=== PATIENT | male | born 1935 | race Caucasian/White ===

== ENCOUNTER 2018-04-26 15:58 | Emergency (ER) | payer MEDICARE, BC ==
--- NOTE | 2018-04-26 17:18 | EDM.PDOC ---
ED HPI GENERAL MEDICAL PROBLEM - General Chief Complaint: Abdominal Pain Stated Complaint: WEAKNESS Time Seen by Provider: 04/26/18 16:51 Source of Information: Reports: Patient, Family, RN Notes Reviewed History Limitations: Reports: No Limitations - History of Present Illness INITIAL COMMENTS - FREE TEXT/NARRATIVE: 82-year-old gentleman presents to emergency department today with complaint of lower abdominal weakness, he recently had significant spine surgery done on April 09 this includes spinal fusion T10-S1. He states he was doing well he has been ambulating however today after a bowel movement they moved him off the commode sudden onset of pain predominately in the right lower quadrant then after the pain rated a 10 out of 10 he had limited movement in his legs can no longer ambulate he can still move his toes - Related Data Allergies Allergy/AdvReac Type Severity Reaction Status Date / Time No Known Allergies Allergy Verified 10/12/17 10:36 Home Meds: Home Meds rOPINIRole [Requip] 0.5 mg PO TID 03/31/15 [History] Amantadine [Symmetrel] 1 tab PO DAILY 10/10/17 [History] Carbidopa/Levodopa [Carbidopa-Levodopa 25-100] 1.5 tab PO ASDIRECTED 10/10/17 [ History] Gabapentin [Neurontin] 1 cap PO TID PRN 10/10/17 [History] oxyCODONE HCl/Acetaminophen [Oxycodone-Acetaminophen 5-325] 2 tab PO Q4H [History] Past Medical History Musculoskeletal History: Reports: Back Pain, Chronic Neurological History: Reports: Parkinson's Dermatologic History: Reports: Benign Melanoma - Past Surgical History Musculoskeletal Surgical History: Reports: Shoulder Surgery Other Musculoskeletal Surgeries/Procedures:: april 09 had a 11 vert fused Social & Family History - Tobacco Use Smoking Status *Q: Never Smoker ED ROS GENERAL - Review of Systems Review Of Systems: See Below Constitutional: Reports: No Symptoms Respiratory: Reports: No Symptoms Cardiovascular: Reports: No Symptoms GI/Abdominal: Reports: No Symptoms Musculoskeletal: Reports: Back Pain Neurological: Reports: Difficulty Walking, Weakness ED EXAM, NEURO - Physical Exam Exam: See Below Text/Narrative:: Doing Babinski maneuver I do get up to going toe with faning on the left, no movement is appreciated on the right Exam Limited By: No Limitations General Appearance: Alert, WD/WN, No Apparent Distress Respiratory/Chest: No Respiratory Distress, Lungs Clear, Normal Breath Sounds, No Accessory Muscle Use Cardiovascular: Regular Rate, Rhythm, No Murmur GI/Abdominal: Soft, Non-Tender Neurological: Alert, Difficulty Walking. No: Ataxia, Babinski, Straight Leg Raise (L), Straight Leg Raise (R), Saddle Anesthesia DTR: 0: Patella (R), Patella (L) Extremities: Normal Inspection, Limited Range of Motion Course - Vital Signs Last Recorded V/S: Last Vital Signs Temp 98.4 F 04/26/18 16:48 Pulse 85 04/26/18 18:37 Resp 16 04/26/18 16:48 BP 116/57 L 04/26/18 18:37 Pulse Ox 91 L 04/26/18 18:37 - Orders/Labs/Meds Orders: Active Orders 24 hr Category Date Time Status Lumbar Spine wo Cont [CT] Stat Exams 04/26/18 17:18 Taken HYDROmorphone [Dilaudid] Med 04/26/18 18:58 Once 1 mg IM ONETIME ONE Departure - Departure Time of Disposition: 19:01 Disposition: DC/Tfer to [facility] Condition: Fair Clinical Impression: T10 vertebral fracture Qualifiers: Encounter type: initial encounter Fracture type: closed Fracture morphology: unspecified fracture morphology Qualified Code(s): S22.079A - Unspecified fracture of T9-T10 vertebra, initial encounter for closed fracture - Discharge Information Referrals: Nick Recio MD [Primary Care Provider] - Forms: ED Department Discharge - My Orders Last 24 Hours: My Active Orders 04/26/18 17:18 Lumbar Spine wo Cont [CT] Stat 04/26/18 18:58 HYDROmorphone [Dilaudid] 1 mg IM ONETIME ONE - Assessment/Plan Last 24 Hours: My Active Orders 04/26/18 17:18 Lumbar Spine wo Cont [CT] Stat 04/26/18 18:58 HYDROmorphone [Dilaudid] 1 mg IM ONETIME ONE Plan: Assessment Acuity = acute Site and laterality = T10 vertebral fracture with no spinal cord or neural foraminal stenosis Etiology = probably secondary to severe osteoporosis Manifestations = pain Location of injury = Home Lab values = CT scan describes fracture above Plan Called discussed case with Dr. Bucio orthopedic surgeon at [facility] that the new fracture was probably related to hardware but because there is no cord impingement elected to watchful waiting with pain control he was given 1 mg Dilaudid here and then long term order was changed to scheduled every 2 hours and no longer when necessary. I did offer hospital admission versus long term they elected to try this in the long term This note was dictated using [employer] voice recognition software please call with any questions on syntax or grammar.
[2018-04-26 18:38] VITALS: BP 116/57
[2018-04-26] MEDS ORDERED: HYDROmorphone 1 MG/ML Syringe IM ONE (18:58)
== END 2018-04-26 20:16 ==
LOC: JP.ED 15:58
DX: S22.079A Unspecified fracture of T9-T10 vertebra, initial encounter for closed fracture (principal); Z79.899 Other long term (current) drug therapy; X58.XXXA Exposure to other specified factors, initial encounter
CPT/HCPCS: 72131; 96372; 99285; J1170; 99283

== ENCOUNTER 2018-05-07 10:57 | Emergency (ER) | payer MEDICARE, BC ==
--- NOTE | 2018-05-07 11:30 | EDM.PDOC ---
ED HPI GENERAL MEDICAL PROBLEM - General Chief Complaint: General Stated Complaint: LOSS OF LEG USE Time Seen by Provider: 05/07/18 11:15 Source of Information: Reports: Patient, Family, Old Records, RN History Limitations: Reports: No Limitations - History of Present Illness INITIAL COMMENTS - FREE TEXT/NARRATIVE: 82 yo male currently living at a local [facility], he has a T10 fracture which is followed by a neurosurgeon in [place], [place]. He saw this doctor yesterday. He has a previously ordered CT with contrast of his spine scheduled for 12:30p today. Has had some urinary incontinence over the past few days and for this reason Dr. Alvarado asked that he be brought to the ER now. thinks he got a new pressure ulcer as a result of the long road trip and sitting in wheel chairs yesterday. Has Parkinson's Dz. Onset: Gradual Duration: Day(s): (3), Waxing/Waning Location: Reports: Abdomen Quality: Reports: Other (Back pain only, not new) Severity: Moderate Improves with: Reports: Medication, Rest Worsens with: Reports: Movement Context: Reports: Other (T10 fx) Associated Symptoms: Reports: No Other Symptoms Treatments [employer]: Reports: Other (see below) (Usual cares) Back Pain Score (Numeric/FACES): 2 - Related Data Allergies Allergy/AdvReac Type Severity Reaction Status Date / Time No Known Allergies Allergy Verified 10/12/17 10:36 Home Meds: Home Meds rOPINIRole [Requip] 0.5 mg PO TID 03/31/15 [History] Amantadine [Symmetrel] 1 tab PO DAILY 10/10/17 [History] Carbidopa/Levodopa [Carbidopa-Levodopa 25-100] 2 tab PO 5XDAY 10/10/17 [History] Gabapentin [Neurontin] 1 cap PO TID PRN 10/10/17 [History] oxyCODONE HCl/Acetaminophen [Oxycodone-Acetaminophen 5-325] 3 tab PO Q4H [History] Past Medical History Musculoskeletal History: Reports: Back Pain, Chronic Neurological History: Reports: Parkinson's Dermatologic History: Reports: Benign Melanoma - Past Surgical History Musculoskeletal Surgical History: Reports: Shoulder Surgery Other Musculoskeletal Surgeries/Procedures:: april 09 had a 11 vert fused scoliosis Social & Family History - Tobacco Use Smoking Status *Q: Never Smoker - Caffeine Use Caffeine Use: Reports: None - Recreational Drug Use Recreational Drug Use: No ED ROS GENERAL - Review of Systems Review Of Systems: See Below Constitutional: Reports: No Symptoms HEENT: Reports: No Symptoms Respiratory: Reports: No Symptoms Cardiovascular: Reports: No Symptoms GI/Abdominal: Reports: No Symptoms : Reports: Incontinence Musculoskeletal: Reports: Back Pain (chronic) Skin: Reports: Wound (decubitus, under management by staff at [facility] currently.) Neurological: Reports: Difficulty Walking (not new), Weakness (both legs over several days) Psychiatric: Reports: No Symptoms ED EXAM, GENERAL - Physical Exam Exam: See Below Exam Limited By: No Limitations General Appearance: Alert, WD/WN, No Apparent Distress Eye Exam: Bilateral Eye: Normal Inspection Ears: Normal External Exam, Normal Canal, Hearing Grossly Normal Ear Exam: Bilateral Ear: Auricle Normal, Canal Normal Nose: Normal Inspection, Normal Mucosa, No Blood Throat/Mouth: Normal Inspection, Normal Lips, Normal Oropharynx, Normal Voice, No Airway Compromise Head: Atraumatic, Normocephalic Neck: Normal Inspection, Supple Respiratory/Chest: No Respiratory Distress, Lungs Clear, Normal Breath Sounds, No Accessory Muscle Use Cardiovascular: Regular Rate, Rhythm, No Edema GI/Abdominal: Normal Bowel Sounds, Soft. No: Distended (Male) Exam: Suprapubic Fullness Extremities: Normal Inspection, Normal Range of Motion, Non-Tender, No Pedal Edema Neurological: Alert, Oriented, CN II-XII Intact, Normal Cognition, No Motor/ Sensory Deficits Psychiatric: Normal Affect, Normal Mood Skin Exam: Warm, Dry, Intact, Normal Color, No Rash Lymphatic: No Adenopathy Course - Vital Signs Text/Narrative:: Barfield placed for bladder scan showing over 1000 ml Last Recorded V/S: Last Vital Signs Temp 36.5 C 05/07/18 11:13 Pulse 85 05/07/18 11:13 Resp 14 05/07/18 11:13 BP 127/66 05/07/18 11:13 Pulse Ox 92 L 05/07/18 11:13 - Orders/Labs/Meds Orders: Active Orders 24 hr Category Date Time Status Barfield Catheter Insertion [Insert Urinary Catheter] [OM. Care 05/07/18 11:45 Ordered PC] Q24H Urinary Catheter Assessment [RC] ASDIRECTED Care 05/07/18 11:35 Active Myelography Lumbar [CR] Stat Exams 05/07/18 Ordered UA W/MICROSCOPIC [URIN] Stat Lab 05/07/18 12:03 Ordered Labs: Laboratory Tests 05/07/18 Range/Units 12:03 Urine Color Yellow Urine Appearance Slightly cloudy Urine pH 5.0 (4.5-8.0) Ur Specific [place] 1.020 (1.008-1.030) Urine Protein Negative (NEGATIVE) mg/dL Urine Glucose (UA) Normal (NEGATIVE) mg/dL Urine Ketones Negative (NEGATIVE) mg/dL Urine Occult Blood Negative (NEGATIVE) Urine Nitrite Negative (NEGAITVE) Urine Bilirubin Negative (NEGATIVE) Urine Urobilinogen Normal (NORMAL) mg/dL Ur Leukocyte Esterase Negative (NEGATIVE) Urine RBC 0-5 (0-5) Urine WBC Not seen (0-5) Ur Epithelial Cells Not seen Amorphous Sediment Rare Urine Bacteria Rare Urine Mucus Many Meds: Medications Discontinued Medications Generic Name Dose Route Start Last Admin Trade Name Freq PRN Reason Stop Dose Admin Acetaminophen 650 mg 05/07/18 11:47 05/07/18 12:01 Tylenol PO 05/07/18 11:48 650 mg NOW ONE Administration Hydromorphone HCl 1 mg 05/07/18 14:20 05/07/18 14:32 Dilaudid IVPUSH 05/07/18 14:21 1 mg ONETIME ONE Administration Iohexol 20 ml 05/07/18 13:46 05/07/18 16:00 Omnipaque-240 IVPUSH 05/07/18 13:47 20 ml ONETIME ONE Administration Lidocaine HCl 10 ml 05/07/18 11:33 05/07/18 11:45 Xylocaine 2% Jelly MUCMEM 05/07/18 11:34 10 ml ONETIME ONE Administration Lidocaine HCl Confirm 05/07/18 11:36 05/07/18 11:45 Xylocaine 2% Jelly Administered 05/07/18 11:37 Not Given Dose 10 ml .ROUTE .STK-MED ONE Lidocaine HCl 10 ml 05/07/18 13:47 05/07/18 16:00 Xylocaine 1% INJECT 05/07/18 13:48 10 ml ONETIME ONE Administration Oxycodone HCl 15 mg 05/07/18 12:00 05/07/18 12:15 Oxycodone PO 05/07/18 12:01 15 mg ONETIME OZ Administration Tamsulosin HCl 0.4 mg 05/07/18 11:34 05/07/18 12:01 Flomax PO 05/07/18 11:35 0.4 mg ONETIME ONE Administration - Radiology Interpretation Free Text/Narrative:: CT spine with contrast-T10 fluid collection causing pressure on spine, likely a hematoma. CT Results Date: 05/07/18 CT Results Time: 16:15 Departure - Departure Time of Disposition: 17:30 Disposition: DC/Tfer to Acute Hospital [facility] Condition: Fair Clinical Impression: Spinal subdural hematoma, Progressive neurological deficit T10 vertebral fracture Qualifiers: Encounter type: initial encounter Fracture type: closed Fracture morphology: unspecified fracture morphology Qualified Code(s): S22.079A - Unspecified fracture of T9-T10 vertebra, initial encounter for closed fracture - Discharge Information Referrals: Nick Recio MD [Primary Care Provider] - Forms: ED Department Discharge - My Orders Last 24 Hours: My Active Orders 05/07/18 Myelography Lumbar [CR] Stat 05/07/18 11:35 Urinary Catheter Assessment [RC] ASDIRECTED 05/07/18 11:45 Barfield Catheter Insertion [Insert Urinary Catheter] [OM.PC] Q24H 05/07/18 12:03 UA W/MICROSCOPIC [URIN] Stat - Assessment/Plan Last 24 Hours: My Active Orders 05/07/18 Myelography Lumbar [CR] Stat 05/07/18 11:35 Urinary Catheter Assessment [RC] ASDIRECTED 05/07/18 11:45 Barfield Catheter Insertion [Insert Urinary Catheter] [OM.PC] Q24H 05/07/18 12:03 UA W/MICROSCOPIC [URIN] Stat
[2018-05-07] MEDS ORDERED: Lidocaine 2% Jelly 10 ML Urojet MUCMEM ONE (11:33)
[2018-05-07] MEDS ORDERED: Tamsulosin 0.4 MG Cap.ER PO ONE (11:34)
[2018-05-07] MEDS ORDERED: Lidocaine 2% Jelly 10 ML Urojet ONE (11:36)
[2018-05-07] MEDS ORDERED: Acetaminophen 325 MG Tab PO ONE (11:47)
[2018-05-07] MEDS ORDERED: IOHEXOL IVPUSH ONE (13:46)
[2018-05-07] MEDS ORDERED: Lidocaine 1% 20 ML MDV INJECT ONE (13:47)
[2018-05-07] MEDS ORDERED: HYDROmorphone 1 MG/ML Syringe IVPUSH ONE ×2 (14:20→19:34)
--- NOTE | 2018-05-07 16:31 | CT ---
Thoracic Spine wo Cont CLINICAL HISTORY: Leg weakness, pain, incontinence TECHNIQUE: 3 x 3 mm axial contiguous tomographic sections were taken through the lumbar interspaces a fter intrathecal contrast administration. Additional sagittal and coronal reconstructed images were o btained. Auto dosage reduction and iterative reconstruction techniques employed. FINDINGS: Patient has had extensive thoracolumbar surgery and fixation. With transpedicular screws an d rods. The lumbar vertebral alignment is maintained. There is diffuse degenerative disc disease and spondylosis. Axial images show spondylosis at L1-2 encroaching on the anterior thecal sac and right lateral recess . There is moderate spondylosis at L2-3 with some facet upper tract. This causes mild central canal aroldo nosis. There is moderate concentric disc bulging at L3-4. There has been laminectomy. There is severe centra l canal stenosis and encroachment on the lateral recesses and the neural foramina. There is moderate spondylosis at L4-5 is a scoliotic curvature. There is severe facet disease. Patient has had a jessenia ctomy. There is severe central canal stenosis and encroachment on the left lateral recess and both ne ural foramina. There is concentric disc bulging at L5-S1. There has been laminectomy. 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 The there are severe central canal stenosis and encroachment on the lateral recess es and neural foramina L4-5: Laminectomy. Severe central canal stenosis and encroachment left lateral recess and both neural foramina
--- NOTE | 2018-05-07 16:43 | CT ---
CT thoracic Spine with intrathecal Cont CLINICAL HISTORY: Pain, leg weakness, incontinence TECHNIQUE: 3 x 3 mm axial contiguous tomographic sections were taken through the lumbar interspaces a fter intrathecal contrast administration. Additional sagittal and coronal reconstructed images were o btained. Auto dosage reduction and iterative reconstruction techniques employed. FINDINGS: Patient has a posterior vertical fracture through the T10 vertebral body. There is slight p osterior wall pulsion. This shows mild encroachment on the anterior thecal sac. There is a moderate-s ized circumferential epidural collection significantly narrowing the thecal sac causing virtual compl ete block. This is from the upper portion of the T11 to the upper portion of T10. Spinal cord contour is not seen at this level. There is some limited the contrast above this is despite the repeat Trend [place] positioning and rescanning. The mid to upper cord has normal contour. There is no significan t encroachment on thecal sac above the T10 level. Incidental note of small right pleural effusion IMPRESSION: Vertical fracture through the posterior aspect of T10 in the sagittal plane with some min imal posterior positioning of the posterior wall with mild encroachment on the anterior thecal sac. C onfiguration is not significantly changed since 04/26/2018 Moderate sized epidural fluid collection or hematoma causing significant encroachment on the thecal s ac at the T10 level. The cord contour is not seen at this level. The visualized cord above T10 to the mid thoracic spine is normal.
[2018-05-07] MEDS ORDERED: HYDROmorphone 0.5 MG/0.5 ML Syringe IVPUSH ONE (21:43)
--- NOTE | 2018-05-07 22:13 | CR ---
Myelography Lumbar CLINICAL HISTORY: Leg weakness, incontinence TECHNIQUE: After informed consent was signed, the patient was sterilely draped and prepped in the usu al fashion. Local anesthetic was given and a 22-gauge needle was placed at the L2-3 level into the s javon canal. There was clear colorless CSF return. 10 mL of Isovue-200 M was instilled under fluorosc opic guidance and multiple overhead images were obtained. Patient was placed in Trendelenburg positio n to move the contrast into the thoracic spine region then rotated from prone to supine to prone posi tion on the gurney. The patient tolerated the procedure well without complication and left the x-ray room in unchanged condition. FINDINGS: Successful intrathecal contrast injection for CT myelography. The fluoroscopy images are li mited due to patient's condition and ability to cooperate IMPRESSION: Lumbar puncture and contrast injection for thoracolumbar CT myelogram
[2018-05-07 22:21] VITALS: BP 113/57
== END 2018-05-07 21:50 ==
LOC: JP.ED 10:57
DX: S06.5X9A Traumatic subdural hemorrhage with loss of consciousness of unspecified duration, initial encounter (principal); S22.079A Unspecified fracture of T9-T10 vertebra, initial encounter for closed fracture; R29.818 Other symptoms and signs involving the nervous system; G20 Parkinson's disease; Z79.899 Other long term (current) drug therapy; R32 Unspecified urinary incontinence; X58.XXXA Exposure to other specified factors, initial encounter
CPT/HCPCS: 51702; 51798; 72128; 72131; 72265; 81001; 96374; 96376; 99284; A9270; J1170; Q9965

== ENCOUNTER 2018-06-28 12:20 | Emergency (ER) | payer MEDICARE, BC ==
[2018-06-28] MEDS ORDERED: Lactated Ringers 1,000 ML IV ONE (12:56)
[2018-06-28] MEDS ORDERED: Sodium Chloride 0.9% 10 ML Syringe FLUSH PRN (12:56)
--- NOTE | 2018-06-28 13:01 | EDM.PDOC ---
ED HPI GENERAL MEDICAL PROBLEM - General Chief Complaint: Back Pain or Injury Stated Complaint: EXTREME ABDOMINAL PAIN Time Seen by Provider: 06/28/18 12:42 Source of Information: Reports: Patient, Family, Old Records, RN Notes Reviewed History Limitations: Reports: No Limitations - History of Present Illness INITIAL COMMENTS - FREE TEXT/NARRATIVE: 82-year-old gentleman presents to the emergency department today via EMS services, he has a known history of T10 fracture status post surgical intervention with complications of subdural hematoma all this happened in April of this year complications of his subdural hematoma include loss of function of his legs. He has been using the PAL system for movement in the long term, last night he heard a pop this morning he has been in a significant amount of pain right flank area. There is no incontinence no change in his lower extremity status no fevers shortness breath or chest pain Pelvic Pain Score (Numeric/FACES): 2 - Related Data Allergies Allergy/AdvReac Type Severity Reaction Status Date / Time No Known Allergies Allergy Verified 06/28/18 13:12 Home Meds: Home Meds rOPINIRole [Requip] 0.5 mg PO TID 03/31/15 [History] Amantadine [Symmetrel] 1 tab PO DAILY 10/10/17 [History] Carbidopa/Levodopa [Carbidopa-Levodopa 25-100] 2 tab PO 5XDAY 10/10/17 [History] Gabapentin [Neurontin] 1 cap PO TID PRN 10/10/17 [History] oxyCODONE HCl/Acetaminophen [Oxycodone-Acetaminophen 5-325] 3 tab PO Q4H [History] Past Medical History Musculoskeletal History: Reports: Back Pain, Chronic Neurological History: Reports: Parkinson's Dermatologic History: Reports: Benign Melanoma - Past Surgical History Musculoskeletal Surgical History: Reports: Shoulder Surgery Other Musculoskeletal Surgeries/Procedures:: 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 Denies: Frequency, Urgency Musculoskeletal: Reports: No Symptoms. Denies: Back Pain Skin: Reports: No Symptoms Neurological: Reports: No Symptoms ED EXAM, GI/ABD - Physical Exam Exam: See Below Exam Limited By: No Limitations General Appearance: Alert, WD/WN, No Apparent Distress Respiratory/Chest: No Respiratory Distress, Lungs Clear, Normal Breath Sounds, No Accessory Muscle Use Cardiovascular: Regular Rate, Rhythm, No Murmur GI/Abdominal Exam: Soft, No Organomegaly, No Distention, No Abnormal Bruit, No Mass, Tender (Tenderness the right flank). No: Guarding, Rigid, Rebound Back Exam: Normal Inspection, Decreased Range of Motion. No: CVA Tenderness (R) , CVA Tenderness (L), Muscle Spasm, Paraspinal Tenderness, Vertebral Tenderness Extremities: Normal Inspection, Non-Tender. No: Normal Range of Motion, No Pedal Edema Course - Vital Signs Last Recorded V/S: Last Vital Signs Temp 98.5 F 06/28/18 13:00 Pulse 80 06/28/18 15:54 Resp 18 06/28/18 14:15 BP 105/48 L 06/28/18 15:54 Pulse Ox 92 L 06/28/18 14:15 - Orders/Labs/Meds Orders: Active Orders 24 hr Category Date Time Status Peripheral IV Care [RC] . DIRECTED Care 06/28/18 12:57 Active Chest 1V Frontal [CR] Urgent Exams 06/28/18 12:55 Taken UA W/MICROSCOPIC [URIN] Urgent Lab 06/28/18 16:00 Ordered Iopamidol [Isovue-300 (61%)] Med 06/28/18 14:00 Active 100 ml IV . DIRECTED Sodium Chloride 0.9% [Normal Saline] 71 ml Med 06/28/18 14:00 Active IV ASDIRECTED Sodium Chloride 0.9% [Saline Flush] Med 06/28/18 12:56 Active 10 ml FLUSH ASDIRECTED PRN Peripheral IV Insertion Adult [OM.PC] Urgent Oth 06/28/18 12:56 Ordered Medication Orders Sodium Chloride (Normal Saline) 71 mls @ 3 mls/sec IV ASDIRECTED OZ Iopamidol (Isovue-300 (61%)) 100 ml IV . DIRECTED OZ Sodium Chloride (Saline Flush) 10 ml FLUSH ASDIRECTED PRN PRN Reason: Keep Vein Open Last Admin: 06/28/18 13:48 Dose: 10 ml Labs: Laboratory Tests 06/28/18 06/28/18 06/28/18 Range/Units 13:14 13:14 13:14 WBC 6.7 (4.5-11.0) K/uL RBC 3.49 L (4.30-5.90) M/uL Hgb 9.7 L (12.0-15.0) g/dL Hct 30.8 L (40.0-54.0) % MCV 88 (80-98) fL MCH 28 (27-31) pg MCHC 32 (32-36) % Plt Count 318 (150-400) K/uL Neut % (Auto) 57 (36-66) % Lymph % (Auto) 30 (24-44) % [place] % (Auto) 12 H (2-6) % Eos % (Auto) 1 L (2-4) % Baso % (Auto) 0 (0-1) % Sodium 136 L (140-148) mmol/L Potassium 4.2 (3.6-5.2) mmol/L Chloride 101 (100-108) mmol/L Carbon Dioxide 27 (21-32) mmol/L Anion Gap 12.2 (5.0-14.0) mmol/L BUN 11 (7-18) mg/dL Creatinine 0.7 L (0.8-1.3) mg/dL Est Cr Clr Drug Dosing 82.08 mL/min Estimated GFR (MDRD) > 60 (>60) Glucose 107 H (74-106) mg/dL Lactic Acid 1.0 (0.4-2.0) mmol/L Calcium 8.7 (8.5-10.1) mg/dL Total Bilirubin 0.5 (0.2-1.0) mg/dL AST 12 L (15-37) U/L ALT 6 L (12-78) U/L Alkaline Phosphatase 109 (46-116) U/L Total Protein 6.7 (6.4-8.2) g/dL Albumin 2.3 L (3.4-5.0) g/dL Globulin 4.4 H (2.3-3.5) g/dL Albumin/Globulin Ratio 0.5 L (1.2-2.2) Urine Color Urine Appearance Urine pH (4.5-8.0) Ur Specific [place] (1.008-1.030) Urine Protein (NEGATIVE) mg/dL Urine Glucose (UA) (NEGATIVE) mg/dL Urine Ketones (NEGATIVE) mg/dL Urine Occult Blood (NEGATIVE) Urine Nitrite (NEGAITVE) Urine Bilirubin (NEGATIVE) Urine Urobilinogen (NORMAL) mg/dL Ur Leukocyte Esterase (NEGATIVE) Urine RBC (0-5) Urine WBC (0-5) Ur Epithelial Cells Amorphous Sediment Urine Bacteria Urine Mucus 06/28/18 Range/Units 16:00 WBC (4.5-11.0) K/uL RBC (4.30-5.90) M/uL Hgb (12.0-15.0) g/dL Hct (40.0-54.0) % MCV (80-98) fL MCH (27-31) pg MCHC (32-36) % Plt Count (150-400) K/uL Neut % (Auto) (36-66) % Lymph % (Auto) (24-44) % [place] % (Auto) (2-6) % Eos % (Auto) (2-4) % Baso % (Auto) (0-1) % Sodium (140-148) mmol/L Potassium (3.6-5.2) mmol/L Chloride (100-108) mmol/L Carbon Dioxide (21-32) mmol/L Anion Gap (5.0-14.0) mmol/L BUN (7-18) mg/dL Creatinine (0.8-1.3) mg/dL Est Cr Clr Drug Dosing mL/min Estimated GFR (MDRD) (>60) Glucose (74-106) mg/dL Lactic Acid (0.4-2.0) mmol/L Calcium (8.5-10.1) mg/dL Total Bilirubin (0.2-1.0) mg/dL AST (15-37) U/L ALT (12-78) U/L Alkaline Phosphatase (46-116) U/L Total Protein (6.4-8.2) g/dL Albumin (3.4-5.0) g/dL Globulin (2.3-3.5) g/dL Albumin/Globulin Ratio (1.2-2.2) Urine Color Yellow Urine Appearance Clear Urine pH 7.0 (4.5-8.0) Ur Specific [place] 1.005 L (1.008-1.030) Urine Protein Negative (NEGATIVE) mg/dL Urine Glucose (UA) Normal (NEGATIVE) mg/dL Urine Ketones Negative (NEGATIVE) mg/dL Urine Occult Blood Negative (NEGATIVE) Urine Nitrite Negative (NEGAITVE) Urine Bilirubin Negative (NEGATIVE) Urine Urobilinogen Normal (NORMAL) mg/dL Ur Leukocyte Esterase Negative (NEGATIVE) Urine RBC Not seen (0-5) Urine WBC Not seen (0-5) Ur Epithelial Cells Rare Amorphous Sediment Not seen Urine Bacteria Not seen Urine Mucus Not seen Meds: Medications Generic Name Dose Route Start Last Admin Trade Name Freq PRN Reason Stop Dose Admin Sodium Chloride 71 mls @ 3 mls/sec 06/28/18 14:00 Normal Saline IV ASDIRECTED OZ Iopamidol 100 ml 06/28/18 14:00 Isovue-300 (61%) IV . DIRECTED OZ Sodium Chloride 10 ml 06/28/18 12:56 06/28/18 13:48 Saline Flush FLUSH 10 ml ASDIRECTED PRN Administration Keep Vein Open Discontinued Medications Generic Name Dose Route Start Last Admin Trade Name Freq PRN Reason Stop Dose Admin Hydromorphone HCl 1 mg 06/28/18 17:41 Dilaudid IVPUSH 06/28/18 17:42 ONETIME ONE Lactated Ringer's 1,000 mls @ 500 mls/hr 06/28/18 12:56 06/28/18 13:32 Ringers, Lactated IV 06/28/18 14:55 500 mls/hr BOLUS ONE Administration Sodium Chloride 10 ml 06/28/18 13:46 Saline Flush FLUSH 06/28/18 13:47 ONETIME ONE Departure - Departure Time of Disposition: 17:50 Disposition: DC/Tfer to Acute Hospital 02 Condition: Fair Clinical Impression: Back pain Qualifiers: Back pain location: thoracic back pain Chronicity: unspecified Back pain laterality: unspecified Qualified Code(s): M54.6 - Pain in thoracic spine - Discharge Information Referrals: Nick Recio MD [Primary Care Provider] - Forms: ED Department Discharge - My Orders Last 24 Hours: My Active Orders 06/28/18 12:55 Chest 1V Frontal [CR] Urgent 06/28/18 12:56 Sodium Chloride 0.9% [Saline Flush] 10 ml FLUSH ASDIRECTED PRN Peripheral IV Insertion Adult [OM.PC] Urgent 06/28/18 12:57 Peripheral IV Care [RC] . DIRECTED 06/28/18 14:00 Iopamidol [Isovue-300 (61%)] 100 ml IV . DIRECTED Sodium Chloride 0.9% [Normal Saline] 71 ml IV ASDIRECTED 06/28/18 16:00 UA W/MICROSCOPIC [URIN] Urgent - Assessment/Plan Last 24 Hours: My Active Orders 06/28/18 12:55 Chest 1V Frontal [CR] Urgent 06/28/18 12:56 Sodium Chloride 0.9% [Saline Flush] 10 ml FLUSH ASDIRECTED PRN Peripheral IV Insertion Adult [OM.PC] Urgent 06/28/18 12:57 Peripheral IV Care [RC] . DIRECTED 06/28/18 14:00 Iopamidol [Isovue-300 (61%)] 100 ml IV . DIRECTED Sodium Chloride 0.9% [Normal Saline] 71 ml IV ASDIRECTED 06/28/18 16:00 UA W/MICROSCOPIC [URIN] Urgent Plan: Assessment Acuity = acute Site and laterality = new 9 mm listhesis at T10 T11 Etiology = question if related to lifting trauma Manifestations = pain Location of injury = Home Lab values = hemoglobin low at 9.7 consistent normochromic anemia, lactic acid normal 1.0 remainder CMP unremarkable urinalysis negative CT scan describes the lesion above Plan Called discussed case with Dr. Ansari orthopedic surgery at [facility] kindly accepted the patient in transport he'll be transported via EMS ground for further evaluation This note was dictated using [employer] voice recognition software please call with any questions on syntax or grammar.
[2018-06-28] MEDS ORDERED: Sodium Chloride 0.9% 10 ML Syringe FLUSH ONE (13:46)
[2018-06-28] MEDS ORDERED: Sodium Chloride 0.9% 71 ML IV SCH (14:00)
[2018-06-28] MEDS ORDERED: Iopamidol 612 MG/ML 100 ML Bottle IV SCH (14:00)
--- NOTE | 2018-06-28 15:03 | CT ---
Abdomen pelvis CT. History: Right flank pain. Technique: Unenhanced axial images were obtained from the lung bases extending through the abdomen an d pelvis. Coronal images were reconstructed. Auto dosage reduction and iterative reconstruction techn iques were employed. Comparison: March 2015 Findings: There are small lateral pleural effusions. There is dependent atelectasis in the lung bases . The kidneys demonstrate no hydronephrosis or hydroureter. There are no renal calculi. There are small cysts of the right kidney. The lateral jacob of here mildly thickened. The liver, gallbladder, pelvis, spleen are unremarkable. The adrenal glands are normal in size. There is a large amount of retained stool within the rectum. There is no free air or free fluid. There is no adenopathy. The patient has a recent history of T10 fracture. There is a thoracic CT available for comparison fro m April. There has been interval change in alignment. There is now 9 mm of anterolisthesi s of T10 on 11. The fracture fragments demonstrate increased distraction. There is artifact from the hardware. There appears to be spinal stenosis on the axial images. Impression: 1. Prior surgical stabilization at T10/11. The posterior hardware is intact. There is interval change in alignment. There is a new 9 mm is of listhesis. There is likely progression of spinal stenosis. 2. Small bilateral pleural effusions. There is likely mild CHF. 3. Large amount of stool in the colon. Correlate for constipation. 4. Mild bladder wall thickening. Correlate for possible UTI.
[2018-06-28] MEDS ORDERED: HYDROmorphone 1 MG/ML Syringe IVPUSH ONE (17:41)
[2018-06-28 17:58] VITALS: BP 111/53
[2018-06-28] MEDS ORDERED: HYDROmorphone 0.5 MG/0.5 ML Syringe IVPUSH ONE (19:12)
[2018-06-28] MEDS ORDERED: HYDROmorphone 0.5 MG/0.5 ML Syringe ONE (19:12)
--- NOTE | 2018-07-01 09:24 | CR ---
CHEST: Portable CLINICAL HISTORY:Cough COMPARISON:None FINDINGS: Heart size is mildly enlarged pulmonary vascular is normal. There are atherosclerotic giles ges in the aorta. There is some mild patchy density in the left infrahilar region. This may represent superimposition. The patient has Booker rods in the thoracolumbar region.. IMPRESSION: Patchy left infrahilar density. This may represent superimposition. Infiltrate is not exc luded. If clinically relevant, short-term follow-up 2 view chest recommended Mild cardiomegaly
== END 2018-06-28 19:19 ==
LOC: JP.ED 12:20
DX: M54.6 Pain in thoracic spine (principal); Z79.899 Other long term (current) drug therapy
CPT/HCPCS: 36415; 71045; 74177; 80053; 81001; 83605; 85025; 96361; 96374; 96376; 99285; J1170; J7050; J7120